=== PATIENT | male | born 1990 | race African-American/Black ===

== ENCOUNTER 2018-10-07 09:10 | Emergency (ER) | payer MEDICAID, MEDICARE ==
[~2018-10-07] VITALS: Ht 144.8 cm; Wt 46.0 kg
[2018-10-07] MEDS ORDERED: LEVETIRACETAM 500MG PREMIX 100 ML IV ONE (10:15)
[2018-10-07 10:53] LABS: BASOPHILS % 0.5 % (0.0-2.0); EOSINOPHILS % 1.9 % (0.0-5.0); HEMATOCRIT. 37.3 % (42.0-52.0); HEMOGLOBIN. 12.7 g/dL (14.0-18.0); LYMPHOCYTES % 7.9 % (20.0-50.0); MEAN CORPUSCULAR HEMOGLOBIN 31.5 pg (28.0-32.0); MONOCYTES % 6.4 % (2.0-8.0); NEUTROPHILS % 83.3 % (40.0-76.0); PLATELET 84 x1000/uL (130-400); RED BLOOD CELL COUNT 4.02 mill/uL (4.7-6.1); RED CELL DISTRIBUTION WIDTH 14.5 % (11.6-14.6)
[2018-10-07 11:02] LABS: CHLORIDE 106 mEq/L (98-107)
[2018-10-07 11:12] LABS: ETHANOL BLOOD < 10 mg/dL
[2018-10-07 13:29] VITALS: BP 116/80
== END 2018-10-07 13:48 | disposition home or self-care (01) ==
LOC: ER 09:10
DX: G40.909 Epilepsy, unspecified, not intractable, without status epilepticus (principal); G93.9 Disorder of brain, unspecified; I11.0 Hypertensive heart disease with heart failure; I50.9 Heart failure, unspecified; F12.90 Cannabis use, unspecified, uncomplicated
CPT/HCPCS: 36415; 70450; 71045; 80053; 85025; 96365; 99285; G0482; J1953

== ENCOUNTER 2019-09-23 18:09 | Emergency (ER) | payer MEDICAID ==
[~2019-09-23] VITALS: Ht 149.9 cm; Wt 46.3 kg
[2019-09-23 18:29] VITALS: BP 124/93
== END 2019-09-23 22:14 | disposition left against medical advice (07) ==
LOC: ER 18:09
DX: Z53.21 Procedure and treatment not carried out due to patient leaving prior to being seen by health care provider (principal)

== ENCOUNTER 2023-01-28 07:41 | Inpatient (IN) | payer MEDICAID ==
[~2023-01-28] VITALS: Ht 167.6 cm; Wt 55.3 kg
[2023-01-28] VITALS (18 sets, daily range): BP systolic 37–118; BP diastolic 21–63
[2023-01-28] MEDS ORDERED: CLONIDINE 0.2MG TABLET PO ONE (08:30)
[2023-01-28] MEDS ORDERED: NITROGLYCERIN OINT 1GM/INCH UDPKT TD ONE (08:30)
[2023-01-28] MEDS ORDERED: METHYLPREDNISOLONE SOD SUCC 125 MG/2 ML VIAL IV ONE (08:30)
[2023-01-28] MEDS ORDERED: NITROGLYCERIN 50MG PREMIX 250 ML IV ONE (08:30)
[2023-01-28] MEDS ORDERED: KETAMINE HCL 50 MG/ML 10ML IV SCH (08:30)
[2023-01-28] MEDS ORDERED: ALBUTEROL (0.083%) 2.5MG/3ML NEB HHN ONE (08:30)
[2023-01-28] MEDS ORDERED: MAGNESIUM 2 G PREMIX 50 ML IV ONE (08:30)
[2023-01-28] MEDS ORDERED: IPRATROPIUM BROMIDE (0.02%) 0.5MG/2.5ML NEB HHN ONE (08:30)
[2023-01-28 08:35] LABS: BASOPHILS % 1.9 % (0.0-2.0); EOSINOPHILS % 2.8 % (0.0-5.0); HEMATOCRIT. 23.3 % (42.0-52.0); HEMOGLOBIN. 7.5 g/dL (14.0-18.0); LYMPHOCYTES % 23.3 % (20.0-50.0); MEAN CORPUSCULAR VOLUME 95.9 fL (80.0-94.0); MEAN PLATELET VOLUME 10.5 fl (7.4-10.4); MONOCYTES % 4.4 % (2.0-8.0); NEUTROPHILS % 67.6 % (40.0-76.0); PLATELET 332 x1000/uL (130-400); RED BLOOD CELL COUNT 2.43 mill/uL (4.7-6.1); RED CELL DISTRIBUTION WIDTH 19.9 % (11.6-14.6)
[2023-01-28 08:40] LABS: CHLORIDE 96 mEq/L (98-107)
[2023-01-28] MEDS ORDERED: NITROGLYCERIN 50MG PREMIX 250 ML IV NR (09:15)
[2023-01-28] MEDS ORDERED: PIPERACILLIN/TAZOBACTAM 3.375GM/50ML PREMIX IV ONE (09:30)
[2023-01-28] MEDS ORDERED: VANCOMYCIN 1G PREMIX 200 ML IV NR (09:30)
[2023-01-28] MEDS ORDERED: PIPERACILLIN/TAZ 3.375G PREMIX 50 ML IV NR (09:30)
[2023-01-28] MEDS ORDERED: LORAZEPAM 2MG/ML CPJ IV ONE (10:30)
[2023-01-28 11:52] LABS: BG BASE EXCESS -0.1 mmol/L (-2.0-2.0); BG CARBOXYHEMOGLOBIN 0.7 % (0.5-1.5); BG DEOXYHEMOGLOBIN 0.4 % (0.0-5.0); BG FRACTION INSPIRED OXYGEN 100; BG HCO3 ACT 24.4 mmol/L (22.0-26.0); BG METHEMOGLOBIN 0.3 % (0.0-1.5); BG OXYGEN SATURATION 99.6 % (92.0-98.5); BG OXYHEMOGLOBIN 98.6 % (94.0-97.0); BG PCO2 38.9 mmHg (35.0-45.0); BG PH 7.416 (7.350-7.450); BG PO2 280.1 mmHg (75.0-100.0); BG SAMPLE SITE RIGHT RADIAL; BG TOTAL HEMOGLOBIN 5.7 g/dL (12.0-18.0); BG VENT MODE MASK - BIPAP
[2023-01-28] MEDS ORDERED: ACETAMINOPHEN 325MG TABLET PO PRN (15:00)
[2023-01-28] MEDS ORDERED: ONDANSETRON HCL 4MG/2ML INJ IV PRN (15:00)
[2023-01-28] MEDS ORDERED: IPRATROPIUM/ALBUTEROL 0.5-3(2.5)MG/3ML NEB NEB PRN (15:00)
[2023-01-28] MEDS ORDERED: HYDRALAZINE 20MG/ML VIAL IV PRN (15:30)
[2023-01-28] MEDS ORDERED: IPRATROPIUM BROMIDE (0.02%) 0.5MG/2.5ML NEB HHN SCH ×2 (16:00→17:00)
[2023-01-28] MEDS ORDERED: LORAZEPAM 2MG/ML CPJ IV NR (16:00)
[2023-01-28] MEDS ORDERED: IPRATROPIUM BROMIDE (0.02%) 0.5MG/2.5ML NEB HHN PRN (16:15)
[2023-01-28 16:32] LABS: INR 4.9
[2023-01-28 16:51] LABS: TOTAL IRON BINDING CAPACITY 308 ug/dL (250-450)
[2023-01-28] MEDS ORDERED: BUDESONIDE 0.5MG/2ML NEB HHN SCH (17:00)
[2023-01-28 17:01] LABS: MEAN CORPUSCULAR HEMOGLOBIN 30.6 pg (28.0-32.0); MEAN CORPUSCULAR VOLUME 94.9 fL (80.0-94.0); PLATELET 120 x1000/uL (130-400); RED BLOOD CELL COUNT 1.83 mill/uL (4.7-6.1); RED CELL DISTRIBUTION WIDTH 19.6 % (11.6-14.6)
[2023-01-28 17:05] LABS: HEMOGLOBIN 5.6 g/dL (14.0-18.0)
[2023-01-28 17:05] LABS: PHOSPHORUS 4.6 mg/dL (2.5-4.9)
[2023-01-28 17:06] LABS: VITAMIN B12 SERUM 1121 pg/mL (211-911)
[2023-01-28 17:06] LABS: HEMATOCRIT 17.3 % (42.0-52.0)
[2023-01-28 17:14] LABS: FERRITIN 2273 ng/mL (22-322)
[2023-01-28] MEDS ORDERED: DEXTROSE 50% WATER 50ML SYRINGE IV PRN (17:45)
[2023-01-28] MEDS ORDERED: ENOXAPARIN 30MG/0.3ML SYR SUBCUT SCH (18:00)
[2023-01-28 19:37] LABS: HEPATITIS B SURFACE ANTIGEN NEGATIVE
[2023-01-28 19:48] LABS: BG BASE EXCESS -2.4 mmol/L (-2.0-2.0); BG CARBOXYHEMOGLOBIN 0.3 % (0.5-1.5); BG DEOXYHEMOGLOBIN 19.1 % (0.0-5.0); BG FRACTION INSPIRED OXYGEN 100; BG METHEMOGLOBIN 0.7 % (0.0-1.5); BG OXYGEN SATURATION 80.7 % (92.0-98.5); BG OXYHEMOGLOBIN 79.9 % (94.0-97.0); BG PCO2 52.3 mmHg (35.0-45.0); BG PO2 53.2 mmHg (75.0-100.0); BG SAMPLE SITE RIGHT RADIAL; BG TOTAL HEMOGLOBIN 5.2 g/dL (12.0-18.0); BG VENT MODE MASK - NRB
[2023-01-28] MEDS: IPRATROPIUM BROMIDE (0.02%) 0.5MG/2.5ML NEB HHN SCH (20:34)
[2023-01-28] MEDS: BLOOD SUGAR DIAGNOSTIC STRIP TEST SCH (20:40)
[2023-01-28] MEDS: INSULIN LISPRO 100 UNITS/ML SUBCUT SCH (20:41)
[2023-01-28] MEDS ORDERED: LEVETIRACETAM 250MG TABLET PO SCH (21:00)
[2023-01-28] MEDS: METHYLPREDNISOLONE SOD SUCC 125 MG/2 ML VIAL IV SCH (21:03)
[2023-01-28] MEDS: PANTOPRAZOLE SODIUM 40 MG/VIAL IV SCH (23:02)
[2023-01-28 23:14] LABS: HEMOGLOBIN 5.9 g/dL (14.0-18.0)
[2023-01-28 23:15] LABS: HEMATOCRIT 17.8 % (42.0-52.0)
[2023-01-28 23:23] LABS: CREATINE KINASE MB FRACTION 2.7 ng/mL (0.5-3.6)
[2023-01-29] VITALS (93 sets, daily range): BP systolic 56–186; BP diastolic 15–137
[2023-01-29] MEDS: IPRATROPIUM BROMIDE (0.02%) 0.5MG/2.5ML NEB HHN SCH ×4 (02:34→20:31)
[2023-01-29 04:12] LABS: MEAN CORPUSCULAR VOLUME 89.5 fL (80.0-94.0); PLATELET 82 x1000/uL (130-400); RED BLOOD CELL COUNT 2.06 mill/uL (4.7-6.1); RED CELL DISTRIBUTION WIDTH 18.8 % (11.6-14.6)
[2023-01-29 05:01] LABS: HEMATOCRIT 18.4 % (42.0-52.0); HEMOGLOBIN 6.2 g/dL (14.0-18.0)
[2023-01-29 05:15] LABS: HEMATOCRIT. 22.7 % (42.0-52.0); HEMOGLOBIN. 7.6 g/dL (14.0-18.0); MEAN CORPUSCULAR HEMOGLOBIN 29.9 pg (28.0-32.0); MEAN CORPUSCULAR VOLUME 89.2 fL (80.0-94.0); MEAN PLATELET VOLUME 9.5 fl (7.4-10.4); PLATELET 215 x1000/uL (130-400); RED BLOOD CELL COUNT 2.54 mill/uL (4.7-6.1); RED CELL DISTRIBUTION WIDTH 19.1 % (11.6-14.6)
[2023-01-29 05:23] LABS: PROTHROMBIN TIME 42.7 sec (9.6-11.0)
[2023-01-29 05:32] LABS: CHLORIDE 99 mEq/L (98-107)
[2023-01-29 05:38] LABS: CREATINE KINASE MB FRACTION 2.8 ng/mL (0.5-3.6)
[2023-01-29 05:46] LABS: HDL CHOLESTEROL 13 mg/dL (40-59); LDL CHOLESTEROL 119 mg/dL (5-100); T4 FREE 1.07 ng/dL (0.76-1.46)
[2023-01-29] MEDS: NOREPINEPHRINE 32 MG in DEXT 5% WATER 218 ML IV PRN (06:24)
[2023-01-29] MEDS: METHYLPREDNISOLONE SOD SUCC 125 MG/2 ML VIAL IV SCH ×3 (06:39→21:56)
[2023-01-29 06:48] LABS: INR 4.4
[2023-01-29] MEDS: BLOOD SUGAR DIAGNOSTIC STRIP TEST SCH ×4 (07:50→21:00)
[2023-01-29] MEDS ORDERED: HYDRALAZINE 20MG/ML VIAL IV PRN (08:00)
[2023-01-29] MEDS ORDERED: HYDRALAZINE 20MG/ML VIAL IV SCH (08:00)
[2023-01-29] MEDS: INSULIN LISPRO 100 UNITS/ML SUBCUT SCH ×4 (08:20→21:00)
[2023-01-29] MEDS ORDERED: PANTOPRAZOLE SODIUM 40 MG/VIAL IV SCH (09:00)
[2023-01-29] MEDS ORDERED: ASPIRIN 81MG EC TABLET PO SCH (09:00)
[2023-01-29 09:46] LABS: PLATELET ESTIMATE NORMAL
[2023-01-29] MEDS: LEVETIRACETAM 500MG TABLET PO SCH ×2 (10:39→21:55)
[2023-01-29] MEDS: PANTOPRAZOLE SODIUM 40 MG/VIAL IV SCH ×2 (10:39→21:55)
[2023-01-29] MEDS ORDERED: NOREPINEPHRINE 32 MG in DEXT 5% WATER 218 ML IV PRN (12:15)
[2023-01-29] MEDS: SEVELAMER CARBONATE 800 MG TABLET PO SCH ×2 (14:43→17:22)
[2023-01-29 15:57] LABS: HEMATOCRIT 24.7 % (42.0-52.0); HEMOGLOBIN 8.2 g/dL (14.0-18.0); MEAN CORPUSCULAR HEMOGLOBIN 29.3 pg (28.0-32.0); PLATELET 354 x1000/uL (130-400); RED BLOOD CELL COUNT 2.81 mill/uL (4.7-6.1); RED CELL DISTRIBUTION WIDTH 19.2 % (11.6-14.6)
[2023-01-29] MEDS ORDERED: VANCOMYCIN 1G PREMIX 200 ML IV SCH (16:00)
[2023-01-29 16:40] LABS: BG BASE EXCESS -3.5 mmol/L (-2.0-2.0); BG CARBOXYHEMOGLOBIN 0.3 % (0.5-1.5); BG DEOXYHEMOGLOBIN 1.6 % (0.0-5.0); BG FRACTION INSPIRED OXYGEN 100; BG HCO3 ACT 21.1 mmol/L (22.0-26.0); BG METHEMOGLOBIN 0.8 % (0.0-1.5); BG OXYGEN SATURATION 98.4 % (92.0-98.5); BG OXYHEMOGLOBIN 97.3 % (94.0-97.0); BG PCO2 36.1 mmHg (35.0-45.0); BG PH 7.384 (7.350-7.450); BG PO2 127.8 mmHg (75.0-100.0); BG VENT MODE MASK - NRB
[2023-01-29] MEDS: PIPERACILLIN/TAZOBACTAM 3.375 G in DEXTROSE 5% WATER 50 ML IV SCH (16:58)
[2023-01-29 20:52] LABS: MEAN CORPUSCULAR VOLUME 88.1 fL (80.0-94.0); PLATELET 120 x1000/uL (130-400); RED BLOOD CELL COUNT 2.12 mill/uL (4.7-6.1); RED CELL DISTRIBUTION WIDTH 19.4 % (11.6-14.6)
[2023-01-29 21:11] LABS: HEMOGLOBIN 6.4 g/dL (14.0-18.0)
[2023-01-29 21:13] LABS: HEMATOCRIT 18.7 % (42.0-52.0)
[2023-01-30] VITALS (95 sets, daily range): BP systolic 40–193; BP diastolic 25–149
[2023-01-30 01:19] LABS: MEAN CORPUSCULAR HEMOGLOBIN 30.4 pg (28.0-32.0); MEAN CORPUSCULAR VOLUME 88.2 fL (80.0-94.0); PLATELET 128 x1000/uL (130-400); RED BLOOD CELL COUNT 2.03 mill/uL (4.7-6.1); RED CELL DISTRIBUTION WIDTH 19.5 % (11.6-14.6)
[2023-01-30 01:32] LABS: HEMATOCRIT 17.9 % (42.0-52.0); HEMOGLOBIN 6.2 g/dL (14.0-18.0)
[2023-01-30] MEDS: IPRATROPIUM BROMIDE (0.02%) 0.5MG/2.5ML NEB HHN SCH ×4 (02:20→20:44)
[2023-01-30] MEDS: ACETAMINOPHEN 325MG TABLET PO PRN (02:30)
[2023-01-30] MEDS: PIPERACILLIN/TAZOBACTAM 3.375 G in DEXTROSE 5% WATER 50 ML IV SCH ×3 (02:39→21:25)
[2023-01-30 05:48] LABS: CHLORIDE 99 mEq/L (98-107); PROTHROMBIN TIME 72.9 sec (9.6-11.0)
[2023-01-30 05:50] LABS: HEMOGLOBIN. 7.9 g/dL (14.0-18.0); MEAN CORPUSCULAR HEMOGLOBIN 30.2 pg (28.0-32.0); MEAN CORPUSCULAR VOLUME 88.6 fL (80.0-94.0); MEAN PLATELET VOLUME 8.8 fl (7.4-10.4); PLATELET 184 x1000/uL (130-400); RED CELL DISTRIBUTION WIDTH 18.6 % (11.6-14.6)
[2023-01-30 05:59] LABS: PHOSPHORUS 6.3 mg/dL (2.5-4.9)
[2023-01-30 06:27] LABS: INR 7.7
[2023-01-30] MEDS: METHYLPREDNISOLONE SOD SUCC 125 MG/2 ML VIAL IV SCH ×3 (07:05→21:25)
[2023-01-30 07:28] LABS: PLATELET ESTIMATE NORMAL
[2023-01-30] MEDS: BLOOD SUGAR DIAGNOSTIC STRIP TEST SCH ×4 (07:50→21:00)
[2023-01-30] MEDS: INSULIN LISPRO 100 UNITS/ML SUBCUT SCH ×4 (08:20→21:00)
[2023-01-30] MEDS: SEVELAMER CARBONATE 800 MG TABLET PO SCH ×3 (08:45→18:40)
[2023-01-30] MEDS: LEVETIRACETAM 500MG TABLET PO SCH ×2 (09:56→21:26)
[2023-01-30] MEDS: PANTOPRAZOLE SODIUM 40 MG/VIAL IV SCH ×2 (09:56→21:25)
[2023-01-30] MEDS: NOREPINEPHRINE 32 MG in DEXT 5% WATER 218 ML IV PRN (13:09)
[2023-01-30] MEDS: FERROUS SULFATE 325MG TABLET PO SCH ×2 (13:12→18:40)
[2023-01-30] MEDS ORDERED: PHYTONADIONE 1MG/0.5ML AMP IM ONE (14:45)
[2023-01-30] MEDS ORDERED: WATER IV NR (15:30)
[2023-01-30] MEDS ORDERED: DEXTROSE 5% IV NR (15:30)
[2023-01-30] MEDS ORDERED: PHYTONADIONE IV NR (15:30)
[2023-01-30] MEDS: AZITHROMYCIN 500 MG in DEXT 5% WATER 250 ML IV SCH (18:39)
[2023-01-30 21:31] LABS: HEMATOCRIT 22.6 % (42.0-52.0); HEMOGLOBIN 8.2 g/dL (14.0-18.0); MEAN CORPUSCULAR HEMOGLOBIN 31.8 pg (28.0-32.0); MEAN CORPUSCULAR VOLUME 87.8 fL (80.0-94.0); PLATELET 96 x1000/uL (130-400); RED BLOOD CELL COUNT 2.57 mill/uL (4.7-6.1); RED CELL DISTRIBUTION WIDTH 17.6 % (11.6-14.6)
[2023-01-30 21:41] LABS: INR 1.9; PROTHROMBIN TIME 19.7 sec (9.6-11.0)
[2023-01-31] VITALS (92 sets, daily range): BP systolic 26–125; BP diastolic 30–87
[2023-01-31 01:40] LABS: MEAN CORPUSCULAR HEMOGLOBIN 29.8 pg (28.0-32.0); MEAN CORPUSCULAR VOLUME 87.7 fL (80.0-94.0); PLATELET 87 x1000/uL (130-400); RED BLOOD CELL COUNT 2.26 mill/uL (4.7-6.1); RED CELL DISTRIBUTION WIDTH 16.8 % (11.6-14.6)
[2023-01-31 01:44] LABS: HEMATOCRIT 19.8 % (42.0-52.0); HEMOGLOBIN 6.7 g/dL (14.0-18.0)
[2023-01-31] MEDS: IPRATROPIUM BROMIDE (0.02%) 0.5MG/2.5ML NEB HHN SCH ×4 (02:32→21:40)
[2023-01-31] MEDS: METHYLPREDNISOLONE SOD SUCC 125 MG/2 ML VIAL IV SCH ×2 (05:03→20:44)
[2023-01-31 05:57] LABS: MEAN CORPUSCULAR HEMOGLOBIN 30.2 pg (28.0-32.0); MEAN CORPUSCULAR VOLUME 88.5 fL (80.0-94.0); MEAN PLATELET VOLUME 8.1 fl (7.4-10.4); PLATELET 82 x1000/uL (130-400); RED BLOOD CELL COUNT 2.26 mill/uL (4.7-6.1); RED CELL DISTRIBUTION WIDTH 17.2 % (11.6-14.6)
[2023-01-31 06:10] LABS: HEMOGLOBIN. 6.8 g/dL (14.0-18.0)
[2023-01-31 06:17] LABS: CHLORIDE 93 mEq/L (98-107)
[2023-01-31] MEDS: GUAIFENESIN 200MG/10ML SUGAR FREE UDC PO PRN (06:17)
[2023-01-31 06:31] LABS: PHOSPHORUS 4.9 mg/dL (2.5-4.9)
[2023-01-31 07:59] LABS: PLATELET ESTIMATE DECREASED
[2023-01-31] MEDS: BLOOD SUGAR DIAGNOSTIC STRIP TEST SCH ×4 (08:16→21:00)
[2023-01-31] MEDS: INSULIN LISPRO 100 UNITS/ML SUBCUT SCH ×4 (08:17→21:00)
[2023-01-31] MEDS: PANTOPRAZOLE SODIUM 40 MG/VIAL IV SCH ×2 (09:00→20:44)
[2023-01-31] MEDS: PIPERACILLIN/TAZOBACTAM 3.375 G in DEXTROSE 5% WATER 50 ML IV SCH ×2 (09:00→20:43)
[2023-01-31] MEDS: FERROUS SULFATE 325MG TABLET PO SCH ×2 (09:00→14:11)
[2023-01-31] MEDS: LEVETIRACETAM 500MG TABLET PO SCH ×2 (09:00→20:43)
[2023-01-31] MEDS: SEVELAMER CARBONATE 800 MG TABLET PO SCH ×3 (09:00→17:26)
[2023-01-31] MEDS ORDERED: WARFARIN SODIUM 7.5MG TABLET PO ONE (10:00)
[2023-01-31 11:56] LABS: HEMATOCRIT 23.4 % (42.0-52.0); MEAN CORPUSCULAR HEMOGLOBIN 29.9 pg (28.0-32.0); MEAN CORPUSCULAR VOLUME 87.4 fL (80.0-94.0); PLATELET 89 x1000/uL (130-400); RED BLOOD CELL COUNT 2.68 mill/uL (4.7-6.1); RED CELL DISTRIBUTION WIDTH 16.8 % (11.6-14.6)
[2023-01-31 12:15] LABS: INR 1.2; PARTIAL THROMBOPLASTIN TIME 34.6 sec (23.4-31.0); PROTHROMBIN TIME 12.8 sec (9.6-11.0)
[2023-01-31] MEDS ORDERED: LACTULOSE 20G/30ML UDC PO NR (12:45)
[2023-01-31] MEDS ORDERED: HEPARIN 5000 UNITS/ML VIAL IV NR (13:00)
[2023-01-31] MEDS: HEPARIN 25,000 UNITS PREMIX 250 ML IV PRN (15:45)
[2023-01-31] MEDS: AZITHROMYCIN 500 MG in DEXT 5% WATER 250 ML IV SCH (17:26)
[2023-01-31] MEDS: DOCUSATE SODIUM 250MG CAPSULE PO SCH (17:26)
[2023-01-31] MEDS ORDERED: WARFARIN SODIUM 3MG TABLET PO NR (18:00)
[2023-01-31] MEDS ORDERED: HEPARIN 5000 UNITS/ML VIAL IV PRN (19:00)
[2023-01-31] MEDS: SENNOSIDES/DOCUSATE SOD 8.6/50MG TABLET PO SCH (20:43)
[2023-01-31] MEDS ORDERED: LACTULOSE 20G/30ML UDC PO PRN (21:00)
[2023-01-31 22:24] LABS: HEMATOCRIT 27.6 % (42.0-52.0); HEMOGLOBIN 9.5 g/dL (14.0-18.0); MEAN CORPUSCULAR HEMOGLOBIN 29.8 pg (28.0-32.0); MEAN CORPUSCULAR VOLUME 86.7 fL (80.0-94.0); PLATELET 92 x1000/uL (130-400); RED BLOOD CELL COUNT 3.18 mill/uL (4.7-6.1); RED CELL DISTRIBUTION WIDTH 16.8 % (11.6-14.6)
[2023-01-31] MEDS: HEPARIN 5000 UNITS/ML VIAL IV PRN (22:36)
[2023-02-01] VITALS (70 sets, daily range): BP systolic 68–160; BP diastolic 25–118
[2023-02-01] MEDS: IPRATROPIUM BROMIDE (0.02%) 0.5MG/2.5ML NEB HHN SCH ×4 (00:37→20:28)
[2023-02-01 01:20] LABS: HEMATOCRIT 26.2 % (42.0-52.0); MEAN CORPUSCULAR HEMOGLOBIN 29.8 pg (28.0-32.0); PLATELET 88 x1000/uL (130-400); RED BLOOD CELL COUNT 3.01 mill/uL (4.7-6.1); RED CELL DISTRIBUTION WIDTH 16.9 % (11.6-14.6)
[2023-02-01 04:38] LABS: HEMATOCRIT. 26.9 % (42.0-52.0); HEMOGLOBIN. 9.1 g/dL (14.0-18.0); MEAN CORPUSCULAR HEMOGLOBIN 29.9 pg (28.0-32.0); MEAN PLATELET VOLUME 8.1 fl (7.4-10.4); PLATELET 98 x1000/uL (130-400); RED BLOOD CELL COUNT 3.06 mill/uL (4.7-6.1); RED CELL DISTRIBUTION WIDTH 17.7 % (11.6-14.6)
[2023-02-01 04:47] LABS: INR 1.1; PARTIAL THROMBOPLASTIN TIME 36.4 sec (23.4-31.0)
[2023-02-01 04:56] LABS: PHOSPHORUS 5.2 mg/dL (2.5-4.9)
[2023-02-01] MEDS: HEPARIN 5000 UNITS/ML VIAL IV PRN ×3 (04:57→23:19)
[2023-02-01] MEDS: BLOOD SUGAR DIAGNOSTIC STRIP TEST SCH ×4 (07:50→20:38)
[2023-02-01] MEDS: SEVELAMER CARBONATE 800 MG TABLET PO SCH ×3 (08:20→18:09)
[2023-02-01] MEDS: INSULIN LISPRO 100 UNITS/ML SUBCUT SCH ×4 (08:20→21:00)
[2023-02-01] MEDS: FERROUS SULFATE 325MG TABLET PO SCH (09:00)
[2023-02-01] MEDS: LEVETIRACETAM 500MG TABLET PO SCH ×2 (09:00→21:22)
[2023-02-01] MEDS: DOCUSATE SODIUM 250MG CAPSULE PO SCH ×2 (09:00→17:00)
[2023-02-01] MEDS: PIPERACILLIN/TAZOBACTAM 3.375 G in DEXTROSE 5% WATER 50 ML IV SCH ×2 (09:17→21:22)
[2023-02-01] MEDS: METHYLPREDNISOLONE SOD SUCC 125 MG/2 ML VIAL IV SCH ×2 (09:17→21:22)
[2023-02-01] MEDS: PANTOPRAZOLE SODIUM 40 MG/VIAL IV SCH ×2 (09:17→21:22)
[2023-02-01] MEDS ORDERED: LORAZEPAM 2MG/ML CPJ IV PRN (09:45)
[2023-02-01 10:34] LABS: PLATELET ESTIMATE DECREASED
[2023-02-01] MEDS ORDERED: LEVETIRACETAM 250 MG in SODIUM CHLORIDE 0.9% 100 ML IV SCH (11:00)
[2023-02-01] MEDS ORDERED: SODIUM POLYSTYRENE SULFONATE 15 G/60 ML BOT PO NR (12:00)
[2023-02-01 13:19] LABS: INR 1.1
[2023-02-01] MEDS ORDERED: LIDOCAINE HCL 1% 10 MG/ML 10ML VIAL ONE (14:15)
[2023-02-01] MEDS ORDERED: PHENYLEPHRINE HCL 10 MG/ML 1ML (IV VIAL) IV ONE (14:15)
[2023-02-01] MEDS ORDERED: EPHEDRINE SULFATE 50MG/ML VIAL ONE (14:15)
[2023-02-01] MEDS ORDERED: ETOMIDATE 2MG/ML 10ML VIAL IV ONE (14:15)
[2023-02-01] MEDS ORDERED: PROPOFOL 200MG/20ML VIAL IV ONE (14:15)
[2023-02-01] MEDS ORDERED: MIDAZOLAM HCL 2 MG/2 ML VIAL ONE ×2 (14:16→15:19)
[2023-02-01] MEDS ORDERED: SODIUM CHLORIDE 0.9% 10ML VIAL ONE (14:16)
[2023-02-01 14:44] LABS: HEMATOCRIT 27.7 % (42.0-52.0); HEMOGLOBIN 9.5 g/dL (14.0-18.0); MEAN CORPUSCULAR HEMOGLOBIN 29.4 pg (28.0-32.0); MEAN CORPUSCULAR VOLUME 85.8 fL (80.0-94.0); PLATELET 85 x1000/uL (130-400); RED BLOOD CELL COUNT 3.23 mill/uL (4.7-6.1); RED CELL DISTRIBUTION WIDTH 17.1 % (11.6-14.6)
[2023-02-01] MEDS ORDERED: WARFARIN SODIUM 7.5MG TABLET PO SCH (18:00)
[2023-02-01] MEDS: AZITHROMYCIN 500 MG in DEXT 5% WATER 250 ML IV SCH (19:30)
[2023-02-01] MEDS: SENNOSIDES/DOCUSATE SOD 8.6/50MG TABLET PO SCH (20:38)
[2023-02-01] MEDS: OCTREOTIDE 1,000 MCG in SODIUM CHLORIDE 0.9% 98 ML IV SCH (21:22)
[2023-02-01] MEDS: EPOETIN ALFA-EPBX 4,000 UNIT/ML VIAL SUBCUT SCH (21:37)
[2023-02-01 21:52] LABS: HEMATOCRIT 31.2 % (42.0-52.0); HEMOGLOBIN 10.7 g/dL (14.0-18.0); MEAN CORPUSCULAR HEMOGLOBIN 29.4 pg (28.0-32.0); MEAN CORPUSCULAR VOLUME 85.9 fL (80.0-94.0); PLATELET 107 x1000/uL (130-400); RED BLOOD CELL COUNT 3.63 mill/uL (4.7-6.1); RED CELL DISTRIBUTION WIDTH 16.9 % (11.6-14.6)
[2023-02-01] MEDS: HEPARIN 25,000 UNITS PREMIX 250 ML IV PRN (23:18)
[2023-02-02] VITALS (58 sets, daily range): BP systolic 57–156; BP diastolic 30–88
[2023-02-02 00:49] LABS: HEMATOCRIT 28.6 % (42.0-52.0); MEAN CORPUSCULAR HEMOGLOBIN 29.9 pg (28.0-32.0); MEAN CORPUSCULAR VOLUME 85.9 fL (80.0-94.0); PLATELET 90 x1000/uL (130-400); RED BLOOD CELL COUNT 3.33 mill/uL (4.7-6.1); RED CELL DISTRIBUTION WIDTH 16.6 % (11.6-14.6)
[2023-02-02] MEDS: IPRATROPIUM BROMIDE (0.02%) 0.5MG/2.5ML NEB HHN SCH ×4 (01:23→20:21)
[2023-02-02] MEDS: ACETAMINOPHEN 325MG TABLET PO PRN (01:36)
[2023-02-02] MEDS ORDERED: HYDROCODONE/ACETAMINOPHEN 5/325MG TABLET PO NR (06:15)
[2023-02-02 06:54] LABS: HEMATOCRIT. 28.6 % (42.0-52.0); HEMOGLOBIN. 9.7 g/dL (14.0-18.0); MEAN CORPUSCULAR HEMOGLOBIN 29.4 pg (28.0-32.0); MEAN CORPUSCULAR VOLUME 86.7 fL (80.0-94.0); MEAN PLATELET VOLUME 7.8 fl (7.4-10.4); PLATELET 89 x1000/uL (130-400); RED CELL DISTRIBUTION WIDTH 16.7 % (11.6-14.6)
[2023-02-02 07:01] LABS: INR 1.3; PARTIAL THROMBOPLASTIN TIME 53.8 sec (23.4-31.0); PROTHROMBIN TIME 13.7 sec (9.6-11.0)
[2023-02-02] MEDS: BLOOD SUGAR DIAGNOSTIC STRIP TEST SCH (07:58)
[2023-02-02] MEDS: INSULIN LISPRO 100 UNITS/ML SUBCUT SCH (07:58)
[2023-02-02] MEDS: LEVETIRACETAM 500MG TABLET PO SCH ×2 (08:08→21:45)
[2023-02-02] MEDS: FERROUS SULFATE 325MG TABLET PO SCH (08:08)
[2023-02-02] MEDS: PANTOPRAZOLE SODIUM 40 MG/VIAL IV SCH ×2 (08:09→21:45)
[2023-02-02] MEDS: METHYLPREDNISOLONE SOD SUCC 125 MG/2 ML VIAL IV SCH ×2 (08:09→21:46)
[2023-02-02] MEDS: DOCUSATE SODIUM 250MG CAPSULE PO SCH ×2 (08:09→16:24)
[2023-02-02] MEDS: PIPERACILLIN/TAZOBACTAM 3.375 G in DEXTROSE 5% WATER 50 ML IV SCH ×2 (08:09→21:22)
[2023-02-02] MEDS: SEVELAMER CARBONATE 800 MG TABLET PO SCH ×3 (08:11→17:32)
[2023-02-02 09:49] LABS: PLATELET ESTIMATE DECREASED
[2023-02-02 13:57] LABS: HEMOGLOBIN 10.4 g/dL (14.0-18.0); MEAN CORPUSCULAR HEMOGLOBIN 29.5 pg (28.0-32.0); MEAN CORPUSCULAR VOLUME 88.3 fL (80.0-94.0); PLATELET 91 x1000/uL (130-400); RED BLOOD CELL COUNT 3.51 mill/uL (4.7-6.1); RED CELL DISTRIBUTION WIDTH 17.3 % (11.6-14.6)
[2023-02-02] MEDS: AZITHROMYCIN 500 MG in DEXT 5% WATER 250 ML IV SCH (16:24)
[2023-02-02] MEDS: OCTREOTIDE 1,000 MCG in SODIUM CHLORIDE 0.9% 98 ML IV SCH (16:24)
[2023-02-02] MEDS ORDERED: WARFARIN SODIUM 5MG TABLET PO SCH (18:00)
[2023-02-02 20:53] LABS: HEMATOCRIT 31.1 % (42.0-52.0); HEMOGLOBIN 10.5 g/dL (14.0-18.0)
[2023-02-02 20:55] LABS: HEMOGLOBIN 10.4 g/dL (14.0-18.0); MEAN CORPUSCULAR HEMOGLOBIN 29.4 pg (28.0-32.0); MEAN CORPUSCULAR VOLUME 87.8 fL (80.0-94.0); PLATELET 105 x1000/uL (130-400); RED BLOOD CELL COUNT 3.53 mill/uL (4.7-6.1); RED CELL DISTRIBUTION WIDTH 16.9 % (11.6-14.6)
[2023-02-02] MEDS: SENNOSIDES/DOCUSATE SOD 8.6/50MG TABLET PO SCH (21:46)
[2023-02-03] VITALS (50 sets, daily range): BP systolic 43–192; BP diastolic 19–111
[2023-02-03 00:09] LABS: HEMATOCRIT 29.5 % (42.0-52.0); HEMOGLOBIN 9.8 g/dL (14.0-18.0)
[2023-02-03] MEDS ORDERED: NON FORMULARY PATIENT HOME MED PO SCH (02:45)
[2023-02-03] MEDS: HEPARIN 25,000 UNITS PREMIX 250 ML IV PRN (03:59)
[2023-02-03 05:30] LABS: HEMATOCRIT. 29.3 % (42.0-52.0); MEAN CORPUSCULAR VOLUME 87.9 fL (80.0-94.0); MEAN PLATELET VOLUME 8.1 fl (7.4-10.4); PLATELET 99 x1000/uL (130-400); RED BLOOD CELL COUNT 3.33 mill/uL (4.7-6.1); RED CELL DISTRIBUTION WIDTH 16.9 % (11.6-14.6)
[2023-02-03] MEDS: NOREPINEPHRINE 32 MG in DEXT 5% WATER 218 ML IV PRN (06:14)
[2023-02-03 06:15] LABS: PARTIAL THROMBOPLASTIN TIME 54.1 sec (23.4-31.0); PROTHROMBIN TIME 20.5 sec (9.6-11.0)
[2023-02-03 07:06] LABS: PHOSPHORUS 7.6 mg/dL (2.5-4.9)
[2023-02-03] MEDS: DOCUSATE SODIUM 250MG CAPSULE PO SCH ×2 (08:50→16:38)
[2023-02-03] MEDS: METHYLPREDNISOLONE SOD SUCC 125 MG/2 ML VIAL IV SCH (08:50)
[2023-02-03] MEDS: FERROUS SULFATE 325MG TABLET PO SCH (08:50)
[2023-02-03] MEDS: LEVETIRACETAM 500MG TABLET PO SCH ×2 (08:50→23:50)
[2023-02-03] MEDS: ACETAMINOPHEN 325MG TABLET PO PRN (12:33)
[2023-02-03] MEDS: OCTREOTIDE 1,000 MCG in SODIUM CHLORIDE 0.9% 98 ML IV SCH (12:56)
[2023-02-03 14:57] LABS: PLATELET ESTIMATE DECREASED
[2023-02-03] MEDS ORDERED: VANCOMYCIN 750MG PREMIX 150 ML IV NR (16:00)
[2023-02-03] MEDS: CALCIUM ACETATE 667MG CAPSULE PO SCH ×2 (16:38→16:58)
[2023-02-03] MEDS: AZITHROMYCIN 500 MG in DEXT 5% WATER 250 ML IV SCH (16:39)
[2023-02-03 16:55] LABS: HEMOGLOBIN 10.3 g/dL (14.0-18.0)
[2023-02-03] MEDS ORDERED: WARFARIN SODIUM 2.5MG TABLET PO NR (18:00)
[2023-02-03] MEDS: SENNOSIDES/DOCUSATE SOD 8.6/50MG TABLET PO SCH (21:00)
[2023-02-03] MEDS: MELATONIN 3MG TABLET PO SCH (23:00)
[2023-02-03] MEDS ORDERED: METHYLPREDNISOLONE SOD SUCC 125 MG/2 ML VIAL IV NR (23:45)
[2023-02-04] VITALS (10 sets, daily range): BP systolic 121–169; BP diastolic 32–105
[2023-02-04 06:29] LABS: INR 3.3
[2023-02-04 06:48] LABS: HEMOGLOBIN. 9.6 g/dL (14.0-18.0); MEAN CORPUSCULAR HEMOGLOBIN 30.1 pg (28.0-32.0); MEAN PLATELET VOLUME 8.3 fl (7.4-10.4); PLATELET 90 x1000/uL (130-400); RED BLOOD CELL COUNT 3.18 mill/uL (4.7-6.1); RED CELL DISTRIBUTION WIDTH 17.1 % (11.6-14.6)
[2023-02-04] MEDS: OMEPRAZOLE 20MG CAPSULE EXTENDED RELEASE PO SCH (07:30)
[2023-02-04] MEDS: OCTREOTIDE 1,000 MCG in SODIUM CHLORIDE 0.9% 98 ML IV SCH (08:47)
[2023-02-04] MEDS: CALCIUM ACETATE 667MG CAPSULE PO SCH ×3 (08:57→18:06)
[2023-02-04] MEDS: LEVETIRACETAM 500MG TABLET PO SCH ×2 (11:13→22:10)
[2023-02-04] MEDS: FERROUS SULFATE 325MG TABLET PO SCH (11:13)
[2023-02-04] MEDS: DOCUSATE SODIUM 250MG CAPSULE PO SCH ×2 (11:14→17:00)
[2023-02-04] MEDS: METHYLPREDNISOLONE SOD SUCC 40 MG/ML VIAL IV SCH ×2 (11:17→22:10)
[2023-02-04 20:55] LABS: PLATELET ESTIMATE DECREASED
[2023-02-04] MEDS: EPOETIN ALFA-EPBX 4,000 UNIT/ML VIAL SUBCUT SCH (21:00)
[2023-02-04] MEDS: CARVEDILOL 3.125 MG TABLET PO SCH (22:10)
[2023-02-04] MEDS: SENNOSIDES/DOCUSATE SOD 8.6/50MG TABLET PO SCH (22:11)
[2023-02-05] VITALS (18 sets, daily range): BP systolic 124–154; BP diastolic 59–102
[2023-02-05] MEDS: MELATONIN 3MG TABLET PO SCH (01:16)
[2023-02-05 06:38] LABS: HEMATOCRIT. 27.5 % (42.0-52.0); HEMOGLOBIN. 9.1 g/dL (14.0-18.0); MEAN CORPUSCULAR HEMOGLOBIN 29.5 pg (28.0-32.0); MEAN CORPUSCULAR VOLUME 88.7 fL (80.0-94.0); MEAN PLATELET VOLUME 7.9 fl (7.4-10.4); PLATELET 100 x1000/uL (130-400); RED CELL DISTRIBUTION WIDTH 17.3 % (11.6-14.6)
[2023-02-05 06:40] LABS: INR 2.6; PROTHROMBIN TIME 26.6 sec (9.6-11.0)
[2023-02-05 07:36] LABS: CHLORIDE 103 mEq/L (98-107)
[2023-02-05] MEDS: OCTREOTIDE 1,000 MCG in SODIUM CHLORIDE 0.9% 98 ML IV SCH (07:38)
[2023-02-05 07:46] LABS: PHOSPHORUS 6.2 mg/dL (2.5-4.9)
[2023-02-05] MEDS: DOCUSATE SODIUM 250MG CAPSULE PO SCH (08:40)
[2023-02-05] MEDS: CALCIUM ACETATE 667MG CAPSULE PO SCH ×2 (08:41→13:26)
[2023-02-05] MEDS: GUAIFENESIN 200MG/10ML SUGAR FREE UDC PO PRN (08:41)
[2023-02-05] MEDS: OMEPRAZOLE 20MG CAPSULE EXTENDED RELEASE PO SCH (08:41)
[2023-02-05] MEDS: FERROUS SULFATE 325MG TABLET PO SCH (08:42)
[2023-02-05] MEDS: CARVEDILOL 3.125 MG TABLET PO SCH (08:42)
[2023-02-05] MEDS: LEVETIRACETAM 500MG TABLET PO SCH (08:42)
[2023-02-05] MEDS ORDERED: METHYLPREDNISOLONE SOD SUCC 40 MG/ML VIAL IV SCH (09:00)
[2023-02-05] MEDS ORDERED: PRED-276 MT ×2 (09:44→15:37)
[2023-02-05] MEDS ORDERED: COR3 PO (09:44)
[2023-02-05] MEDS ORDERED: KEPP500 PO (09:44)
[2023-02-05] MEDS ORDERED: FERR-63 PO (09:44)
[2023-02-05] MEDS ORDERED: WARF-53 MT (09:44)
[2023-02-05] MEDS ORDERED: PROP10TA10 MT (09:44)
[2023-02-05] MEDS ORDERED: CALC667C PO (09:44)
[2023-02-05] MEDS ORDERED: OMEP20CA14 PO ×2 (09:44→15:37)
[2023-02-05 14:58] LABS: PLATELET ESTIMATE DECREASED
[2023-02-05] MEDS ORDERED: WARF-67 MT (15:40)
[2023-02-05] MEDS ORDERED: WARFARIN SODIUM 2.5MG TABLET PO SCH (18:00)
[2023-02-05] MEDS ORDERED: CARVEDILOL 3.125 MG TABLET PO SCH (21:00)
[2023-02-05] MEDS ORDERED: VANCOMYCIN 500MG PREMIX 100 ML IV SCH (21:00)
== END 2023-02-05 17:30 | disposition home or self-care (01) | DRG 720 ==
LOC: ER 07:41 → MICUSO 10:44 → EDBEDREQSVC 10:48 → EDBEDREQ 10:48 → 7EST 17:24 → MICUSO 17:26 → 5EST 18:35 → CVICU 22:39 → 5EST 02-03 19:30
PROVIDERS: ADMIT Internal Medicine; ATTEND Internal Medicine
PROC: 5A09457 Assistance with Respiratory Ventilation, 24-96 Consecutive Hours, Continuous Positive Airway Pressure (ICD-10-PCS; principal; 2023-01-28)
PROC: 30233N1 Transfusion of Nonautologous Red Blood Cells into Peripheral Vein, Percutaneous Approach (ICD-10-PCS; 2023-01-28)
PROC: 5A1D70Z Performance of Urinary Filtration, Intermittent, Less than 6 Hours Per Day (ICD-10-PCS; 2023-01-29)
PROC: 5A1D70Z Performance of Urinary Filtration, Intermittent, Less than 6 Hours Per Day (ICD-10-PCS; 2023-01-30)
PROC: 0DJ08ZZ Inspection of Upper Intestinal Tract, Via Natural or Artificial Opening Endoscopic (ICD-10-PCS; 2023-02-01)
PROC: 5A1D70Z Performance of Urinary Filtration, Intermittent, Less than 6 Hours Per Day (ICD-10-PCS; 2023-02-01)
PROC: 02HV33Z Insertion of Infusion Device into Superior Vena Cava, Percutaneous Approach (ICD-10-PCS; 2023-02-01)
PROC: B548ZZA Ultrasonography of Superior Vena Cava, Guidance (ICD-10-PCS; 2023-02-01)
DX: A41.9 Sepsis, unspecified organism (principal); J96.01 Acute respiratory failure with hypoxia; G92.8 Other toxic encephalopathy; I85.01 Esophageal varices with bleeding; E87.20 Acidosis, unspecified; I95.3 Hypotension of hemodialysis; I85.10 Secondary esophageal varices without bleeding; R64 Cachexia; D68.9 Coagulation defect, unspecified; D62 Acute posthemorrhagic anemia; E83.39 Other disorders of phosphorus metabolism; G40.909 Epilepsy, unspecified, not intractable, without status epilepticus; I16.0 Hypertensive urgency; I50.9 Heart failure, unspecified; J18.9 Pneumonia, unspecified organism; J45.909 Unspecified asthma, uncomplicated; K74.60 Unspecified cirrhosis of liver; N18.6 End stage renal disease; N25.81 Secondary hyperparathyroidism of renal origin; R18.8 Other ascites; I13.2 Hypertensive heart and chronic kidney disease with heart failure and with stage 5 chronic kidney disease, or end stage renal disease; I07.1 Rheumatic tricuspid insufficiency; I27.20 Pulmonary hypertension, unspecified; I35.0 Nonrheumatic aortic (valve) stenosis; D69.59 Other secondary thrombocytopenia; Z20.822 Contact with and (suspected) exposure to COVID-19; K31.89 Other diseases of stomach and duodenum; K44.9 Diaphragmatic hernia without obstruction or gangrene; K76.6 Portal hypertension; L60.0 Ingrowing nail; E80.6 Other disorders of bilirubin metabolism; R65.20 Severe sepsis without septic shock; K21.9 Gastro-esophageal reflux disease without esophagitis; K59.00 Constipation, unspecified; K83.01 Primary sclerosing cholangitis; R74.01 Elevation of levels of liver transaminase levels; I25.2 Old myocardial infarction; Z94.0 Kidney transplant status; Z79.01 Long term (current) use of anticoagulants; Z99.2 Dependence on renal dialysis; Z59.00 Homelessness unspecified; Z91.199 Patient's noncompliance with other medical treatment and regimen due to unspecified reason; Z79.899 Other long term (current) drug therapy; Z87.11 Personal history of peptic ulcer disease; Z95.2 Presence of prosthetic heart valve; Z68.1 Body mass index [BMI] 19.9 or less, adult; Z82.49 Family history of ischemic heart disease and other diseases of the circulatory system
CPT/HCPCS: 36415; 36573; 36600; 71045; 71250; 74176; 76700; 78580; 80048; 80053; 80061; 80076; 80202; 82140; 82248; 82270; 82375; 82533; 82542; 82550; 82553; 82607; 82728; 82746; 82805; 82962; 83010; 83036; 83540; 83550; 83605; 83615; 83735; 83880; 84100; 84132; 84145; 84439; 84443; 84484; 85014; 85018; 85025; 85027; 85044; 85379; 86705; 86709; 86803; 86850; 86880; 86900; 86920; 87340; 87426; 90935; 93005; 93306; 93308; 93923; 93970; 94640; 94660; 99291; C1725; C1760; C9113; C9803; J0360; J0456; J0885; J1644; J1815; J1953; J2060; J2250; J2354; J2370; J2543; J2704; J2920; J2930; J3370; J3430; J3475; J3490; J7050; J7060; P9016

== ENCOUNTER 2023-02-18 07:36 | Inpatient (IN) | payer MEDICAID ==
[~2023-02-18] VITALS: Ht 167.6 cm; Wt 74.8 kg
[~2023-02-18 07:36] MED LIST: CALC667C PO; COR3 PO; FERR-63 PO; KEPP500 PO; OMEP20CA14 PO; PRED-855 MT; WARF-67 MT
[2023-02-18] MEDS ORDERED: LEVETIRACETAM 500MG PREMIX 100 ML IV ONE (07:45)
[2023-02-18] MEDS ORDERED: CLINDAMYCIN 600 MG in DEXTROSE 5% WATER 50 ML IV ONE (07:45)
[2023-02-18] MEDS ORDERED: AZTREONAM 1 G in DEXTROSE 5% WATER 50 ML IV SCH (07:45)
[2023-02-18 07:56] LABS: HEMATOCRIT. 27.9 % (42.0-52.0); MEAN CORPUSCULAR HEMOGLOBIN 30.8 pg (28.0-32.0); MEAN CORPUSCULAR VOLUME 95.4 fL (80.0-94.0); PLATELET 68 x1000/uL (130-400); RED BLOOD CELL COUNT 2.93 mill/uL (4.7-6.1); RED CELL DISTRIBUTION WIDTH 25.1 % (11.6-14.6)
[2023-02-18 08:09] LABS: CHLORIDE 102 mEq/L (98-107)
[2023-02-18 08:28] LABS: ETHANOL BLOOD < 10 mg/dL
[2023-02-18 08:56] LABS: PLATELET ESTIMATE DECREASED
[2023-02-18 10:30] VITALS: BP 134/55
[2023-02-18] MEDS ORDERED: DIPHENHYDRAMINE 50MG/ML VIAL IV PRN (11:45)
[2023-02-18] MEDS ORDERED: IPRATROPIUM/ALBUTEROL 0.5-3(2.5)MG/3ML NEB HHN PRN (11:45)
[2023-02-18] MEDS ORDERED: ONDANSETRON HCL 4MG/2ML INJ IV PRN (11:45)
[2023-02-18] MEDS ORDERED: ACETAMINOPHEN 325MG TABLET PO PRN ×2 (11:45)
[2023-02-18] MEDS ORDERED: DOCUSATE SODIUM 100MG CAPSULE PO PRN (11:45)
[2023-02-18] MEDS ORDERED: CLONIDINE 0.1MG TABLET PO PRN (11:45)
[2023-02-18] MEDS ORDERED: GUAIFENESIN 200MG/10ML SUGAR FREE UDC PO PRN (11:45)
[2023-02-18] MEDS ORDERED: IPRATROPIUM BROMIDE (0.02%) 0.5MG/2.5ML NEB HHN PRN (12:00)
[2023-02-18] MEDS ORDERED: ALBUTEROL (0.083%) 2.5MG/3ML NEB HHN PRN (12:00)
[2023-02-18 13:36] LABS: INR 2.5; PROTHROMBIN TIME 25.7 sec (9.6-11.0)
[2023-02-18] MEDS ORDERED: SODIUM BICARBONATE 8.4% 1 MEQ/ML 50ML SYR IV NR (14:15)
[2023-02-18 14:24] LABS: CREATINE KINASE MB FRACTION 2.9 ng/mL (0.5-3.6)
[2023-02-18 14:35] LABS: PHOSPHORUS 4.9 mg/dL (2.5-4.9)
[2023-02-18 14:42] LABS: HEPATITIS B SURFACE ANTIGEN NEGATIVE
[2023-02-18 16:00] VITALS: BP 101/48
[2023-02-18] MEDS: CALCIUM ACETATE 667MG CAPSULE PO SCH (16:15)
[2023-02-18] MEDS: FERROUS SULFATE 325MG TABLET PO SCH (16:15)
[2023-02-18] MEDS ORDERED: WARFARIN SODIUM 2MG TABLET PO SCH (18:00)
[2023-02-18] MEDS ORDERED: PIPERACILLIN/TAZOBACTAM 3.375GM/50ML PREMIX IV ONE (18:15)
[2023-02-18 20:00] VITALS: BP 97/36
[2023-02-18] MEDS ORDERED: VANCOMYCIN 1,500 MG in DEXT 5% WATER 250 ML IV NR (20:00)
[2023-02-18] MEDS: LEVETIRACETAM 500MG TABLET PO SCH (20:37)
[2023-02-18] MEDS: CARVEDILOL 3.125 MG TABLET PO SCH (20:38)
[2023-02-18] MEDS ORDERED: FAMOTIDINE 20MG TABLET PO SCH (21:00)
[2023-02-18] MEDS: PIPERACILLIN/TAZOBACTAM 3.375 G in DEXTROSE 5% WATER 50 ML IV SCH (22:24)
[2023-02-19] VITALS (10 sets, daily range): BP systolic 95–147; BP diastolic 45–100
[2023-02-19 00:18] LABS: CREATINE KINASE MB FRACTION 2.5 ng/mL (0.5-3.6)
[2023-02-19] MEDS: LEVETIRACETAM 500MG TABLET PO SCH (08:32)
[2023-02-19] MEDS: CARVEDILOL 3.125 MG TABLET PO SCH (08:33)
[2023-02-19] MEDS: FERROUS SULFATE 325MG TABLET PO SCH (08:33)
[2023-02-19] MEDS: CALCIUM ACETATE 667MG CAPSULE PO SCH ×2 (08:33→13:13)
[2023-02-19] MEDS: PIPERACILLIN/TAZOBACTAM 3.375 G in DEXTROSE 5% WATER 50 ML IV SCH (08:34)
[2023-02-19 17:26] LABS: INR 3.4
[2023-02-19 17:58] LABS: CHLORIDE 102 mEq/L (98-107)
[2023-02-19 18:13] LABS: AMYLASE 250 IU/L (25-115); HDL CHOLESTEROL 10 mg/dL (40-59); LDL CHOLESTEROL 197 mg/dL (5-100); PHOSPHORUS 5.6 mg/dL (2.5-4.9); T4 FREE 1.05 ng/dL (0.76-1.46)
[2023-02-19] MEDS ORDERED: EPOETIN ALFA-EPBX 4,000 UNIT/ML VIAL SUBCUT SCH (21:00)
== END 2023-02-19 17:10 | disposition home or self-care (01) | DRG 53 ==
LOC: ER 07:36 → EDBEDREQ 09:37 → 7EST 10:22
PROVIDERS: ADMIT Hospitalist; ATTEND Hospitalist
PROC: 4A00X4Z Measurement of Central Nervous Electrical Activity, External Approach (ICD-10-PCS; principal; 2023-02-19)
PROC: 5A1D70Z Performance of Urinary Filtration, Intermittent, Less than 6 Hours Per Day (ICD-10-PCS; 2023-02-19)
DX: G40.409 Other generalized epilepsy and epileptic syndromes, not intractable, without status epilepticus (principal); J69.0 Pneumonitis due to inhalation of food and vomit; I50.33 Acute on chronic diastolic (congestive) heart failure; D68.9 Coagulation defect, unspecified; E87.20 Acidosis, unspecified; E46 Unspecified protein-calorie malnutrition; N18.6 End stage renal disease; D63.1 Anemia in chronic kidney disease; K83.01 Primary sclerosing cholangitis; E88.09 Other disorders of plasma-protein metabolism, not elsewhere classified; R16.2 Hepatomegaly with splenomegaly, not elsewhere classified; I13.2 Hypertensive heart and chronic kidney disease with heart failure and with stage 5 chronic kidney disease, or end stage renal disease; D69.59 Other secondary thrombocytopenia; J45.909 Unspecified asthma, uncomplicated; R74.01 Elevation of levels of liver transaminase levels; N13.30 Unspecified hydronephrosis; D72.825 Bandemia; E21.3 Hyperparathyroidism, unspecified; F32.A Depression, unspecified; F10.10 Alcohol abuse, uncomplicated; Z79.01 Long term (current) use of anticoagulants; Z87.11 Personal history of peptic ulcer disease; Z99.2 Dependence on renal dialysis; Z95.2 Presence of prosthetic heart valve; Z88.1 Allergy status to other antibiotic agents; I25.2 Old myocardial infarction; Z82.49 Family history of ischemic heart disease and other diseases of the circulatory system; Z79.899 Other long term (current) drug therapy; Z68.26 Body mass index [BMI] 26.0-26.9, adult
CPT/HCPCS: 36415; 71045; 73630; 76700; 80053; 80061; 80076; 80320; 82140; 82150; 82248; 82550; 82553; 82728; 82962; 83036; 83540; 83550; 83605; 83735; 83880; 84100; 84145; 84439; 84443; 84484; 85025; 85651; 86705; 86709; 86803; 87340; 87426; 90935; 93005; 93970; 95816; 99291; C9803; J1200; J1953; J2543; J3370; J3490; J7060; G0480